=== PATIENT | female | born 1970 | race Caucasian/White ===

== ENCOUNTER → 2017-07-16 | Outpatient (CLI) | payer MEDICAID ==
[~2017-07-16] MED LIST: ALPR-475 PO; AMIT25TA PO; LAMO200T49 PO; MELO7.5T31 PO; QUET300T5 PO
== END | disposition home or self-care (01) ==
LOC: CFH 15:41
PROVIDERS: ATTEND Family Medicine
DX: R10.9 Unspecified abdominal pain (principal)
CPT/HCPCS: 76700